=== PATIENT | female | born 1990 | race Caucasian/White ===

== ENCOUNTER 2017-01-11 08:34 | Inpatient (IN) | payer OTHER ==
[2017-01-11] MEDS ORDERED: LACTATED RINGERS 1,000 ML IV PRN (09:03)
[2017-01-11] MEDS ORDERED: METHYLERGONOVINE MALEATE 0.2 MG/ML SOL IM PRN (09:03)
[2017-01-11] MEDS ORDERED: MEPIVACAINE HCL 1% MPF 30 ML SOL INFIL PRN (09:03)
[2017-01-11] MEDS ORDERED: FENTANYL 100MCG/2ML SOL IV PRN (09:03)
[2017-01-11] MEDS ORDERED: CARBOPROST 250 MCG/ML SOL IM PRN (09:03)
[2017-01-11] MEDS ORDERED: OXYTOCIN 10000 MU/ML SOL IM PRN (09:03)
[2017-01-11] MEDS ORDERED: SODIUM CHLORIDE 0.9% FLUSH 10 ML SOL IV PRN (09:03)
[2017-01-11] MEDS ORDERED: TERBUTALINE SULFATE 1 MG/ML SOL SC PRN (09:06)
[2017-01-11] MEDS ORDERED: LACTATED RINGERS 1,000 ML IV SCH (09:15)
[2017-01-11] MEDS ORDERED: OXYTOCIN 10000 MU/ML 20,000 MU in LACTATED RINGERS 1,000 ML IV SCH (09:15)
[2017-01-11 09:37] LABS: BASOPHILS % (AUTO) 0 % (0-3); EOSINOPHILS % (AUTO) 1 % (0-9); HEMATOCRIT 31 % (35-47); MEAN CORPUSCULAR HGB CONC 34.9 gm/dl (32.0-36.0); MEAN CORPUSCULAR VOLUME 83 fL (81-99); MONOCYTES % (AUTO) 5.8 % (0-12)
[2017-01-11] MEDS ORDERED: LACTATED RINGERS 1,000 ML ONE (11:06)
[2017-01-11] MEDS ORDERED: OXYTOCIN 10000 MU/ML SOL ONE (11:06)
[2017-01-11] MEDS: SODIUM CHLORIDE 0.9% FLUSH 10 ML SOL IV SCH ×2 (11:23→20:16)
[2017-01-11] MEDS ORDERED: NALOXONE HYDROCHLORIDE 0.4 MG/ML SOL IV PRN (15:15)
[2017-01-11] MEDS ORDERED: NALBUPHINE HCL 20 MG/ML SOL IV PRN (15:15)
[2017-01-11] MEDS ORDERED: DIPHENHYDRAMINE 50 MG/ML SOL IV PRN (15:15)
[2017-01-11] MEDS ORDERED: EPHEDRINE SULFATE 50 MG/ML SOL IV PRN (15:15)
[2017-01-11] MEDS ORDERED: FENTANYL 250 MCG/ 5ML SOL ONE (15:17)
[2017-01-11] MEDS ORDERED: ROPIVACAINE HYDROCHLORIDE 5 MG/ML SOL ONE (15:18)
[2017-01-11] MEDS ORDERED: LIDOCAINE HCL 2% MPF SOL ONE ×2 (15:18→18:04)
[2017-01-11] MEDS: LACTATED RINGERS 1,000 ML IV SCH ×4 (15:24→20:16)
[2017-01-11] MEDS ORDERED: FLEET ENEMA PR PRN (20:04)
[2017-01-11] MEDS ORDERED: TEMAZEPAM 15MG 15 MG CAP PO PRN (20:04)
[2017-01-11] MEDS ORDERED: METHYLERGONOVINE MALEATE 0.2 MG TAB PO PRN (20:04)
[2017-01-11] MEDS ORDERED: APAP/HYDROCODONE 325/5 TAB PO PRN (20:04)
[2017-01-11] MEDS ORDERED: BISACODYL 10 MG SUP PR PRN (20:04)
[2017-01-11] MEDS ORDERED: WITCH HAZEL 1 EA PAD TOP PRN (20:04)
[2017-01-11] MEDS ORDERED: BENZOCAINE/MENTHOL 1 SPR TOP PRN (20:04)
[2017-01-11] MEDS: IBUPROFEN 600 MG TAB PO PRN (23:01)
[2017-01-11] MEDS: DOCUSATE SODIUM 100 MG SGL PO SCH (23:01)
[2017-01-12] MEDS: SODIUM CHLORIDE 0.9% FLUSH 10 ML SOL IV SCH ×2 (03:15→10:44)
[2017-01-12] MEDS: IBUPROFEN 600 MG TAB PO PRN ×3 (06:59→21:05)
[2017-01-12] MEDS: DOCUSATE SODIUM 100 MG SGL PO SCH ×2 (09:47→21:05)
[2017-01-12 21:11] VITALS: O2SAT 99
[2017-01-13 04:29] VITALS: BP 94/58; PULSE 73; RESP 20; TEMP 97.6
[2017-01-13] MEDS: DOCUSATE SODIUM 100 MG SGL PO SCH (09:17)
== END 2017-01-13 10:50 | disposition home or self-care (01) | DRG 560 ==
LOC: OBSVTOIN 08:34 → OB 08:34
PROVIDERS: ADMIT Family Medicine; ATTEND Family Medicine
PROC: 3E033VJ Introduction of Other Hormone into Peripheral Vein, Percutaneous Approach (ICD-10-PCS; principal; 2017-01-11)
PROC: 10907ZC Drainage of Amniotic Fluid, Therapeutic from Products of Conception, Via Natural or Artificial Opening (ICD-10-PCS; 2017-01-11)
PROC: 10E0XZZ Delivery of Products of Conception, External Approach (ICD-10-PCS; 2017-01-11)
PROC: 0HQ9XZZ Repair Perineum Skin, External Approach (ICD-10-PCS; 2017-01-11)
DX: O48.0 Post-term pregnancy (principal); O76 Abnormality in fetal heart rate and rhythm complicating labor and delivery; Z3A.41 41 weeks gestation of pregnancy; Z37.0 Single live birth; O69.81X0 Labor and delivery complicated by cord around neck, without compression, not applicable or unspecified; O70.0 First degree perineal laceration during delivery
CPT/HCPCS: 36415; 59025; 85018; 85025; 94762; J0670; J2590; J2795; J3010; J3105